=== PATIENT | female | born 1950 | race Caucasian/White ===

== ENCOUNTER 2019-12-24 05:41 | Inpatient (IN) | payer BC ==
[2019-12-23 16:52] VITALS: BMI 31.1
[2019-12-24] MEDS ORDERED: MIDAZOLAM HCL 2 MG/2 ML SINGLE DOSE VIAL ONE ×3 (07:24→07:26)
[2019-12-24] MEDS ORDERED: PROPOFOL 20 ML ONE (07:24)
[2019-12-24] MEDS ORDERED: ROCURONIUM BROMIDE 50 MG/5 ML SYRINGE ONE (07:24)
[2019-12-24] MEDS ORDERED: DEXAMETHASONE SOD PHOSPHATE/PF 10 MG/ML SDV ONE (07:27)
[2019-12-24] MEDS ORDERED: ceFAZolin SODIUM 1 GM VIAL IVPB ONE (08:25)
[2019-12-24] MEDS ORDERED: ceFAZolin SODIUM 1 GM VIAL ONE (08:26)
[2019-12-24] MEDS ORDERED: DEXAMETHASONE SOD PHOSPHATE 4 MG/1 ML VIAL ONE (08:39)
[2019-12-24] MEDS ORDERED: ONDANSETRON 4 MG/2 ML VIAL IVPUSH PRN (09:33)
[2019-12-24] MEDS ORDERED: ACETAMINOPHEN 1000 MG/100 ML VIAL (NON FORMULARY) IVPB ONE (09:34)
[2019-12-24] MEDS ORDERED: oxyCODONE HCL 5 MG TABLET PO PRN ×2 (09:34→10:17)
[2019-12-24] MEDS ORDERED: KETOROLAC TROMETHAMINE 30 MG/1 ML VIAL ONE (09:35)
[2019-12-24] MEDS ORDERED: GLYCOPYRROLATE 0.2 MG/1 ML VIAL ONE (09:35)
[2019-12-24] MEDS ORDERED: NEOSTIGMINE METHYLSULFATE 0.5 MG/ML - 10 ML MDV ONE (09:35)
[2019-12-24] MEDS ORDERED: ACETAMINOPHEN INJECTION 100 ML IVPB ONE (10:09)
[2019-12-24] MEDS: LACTATED RINGERS SOLUTION 1,000 ML IV SCH (10:15)
[2019-12-24] MEDS ORDERED: ACETAMINOPHEN 325 MG TABLET (FP) PO PRN (10:17)
[2019-12-24] MEDS ORDERED: IBUPROFEN 800 MG/8 ML IJ IVPB PRN (10:17)
[2019-12-24] MEDS: oxyCODONE HCL 10 MG SUSTAINED ACTING TABLET PO SCH ×2 (12:32→22:24)
[2019-12-24] MEDS: ACETAMINOPHEN 325 MG TABLET (FP) PO SCH ×3 (12:33→21:13)
[2019-12-24] MEDS: oxyCODONE HCL 5 MG TABLET PO PRN ×2 (14:31→17:45)
[2019-12-24] MEDS: CEFAZOLIN 2 GM/D5W 2 GM/50 ML ML IVPB SCH (17:45)
[2019-12-24] MEDS: amLODIPine BESYLATE 5 MG TABLET (FP) PO SCH (21:13)
[2019-12-25] MEDS: oxyCODONE HCL 5 MG TABLET PO PRN (00:55)
[2019-12-25] MEDS: CEFAZOLIN 2 GM/D5W 2 GM/50 ML ML IVPB SCH (01:01)
[2019-12-25] MEDS: ACETAMINOPHEN 325 MG TABLET (FP) PO SCH ×4 (03:56→21:31)
[2019-12-25 08:29] LABS: BASO % 0.1 % (0-2.0); HEMATOCRIT 41.7 % (32.4-45.2); HEMOGLOBIN 13.5 GM/dL (10.7-15.3); LYMPH % 10.1 % (8-40); MCH 26.1 pg (25.7-33.7); MCHC 32.4 g/dl (32.0-36.0); MEAN CELL VOLUME 80.5 fl (80-96); MEAN PLT VOLUME 10.6 fl (7.5-11.1); MONO % 6.9 % (3.8-10.2); NEUT % 82.9 % (42.8-82.8); PLATELET COUNT 206 K/MM3 (134-434); RBC 5.18 M/mm3 (3.60-5.2); RDW 13.3 % (11.6-15.6); WHITE BLOOD COUNT 12.5 K/mm3 (4.0-10.0)
[2019-12-25] MEDS: LOSARTAN 50MG/HCTZ 12.5MG 1 TAB PO SCH (09:38)
[2019-12-25] MEDS: oxyCODONE HCL 10 MG SUSTAINED ACTING TABLET PO SCH ×2 (09:39→22:28)
[2019-12-25] MEDS: LACTATED RINGERS SOLUTION 1,000 ML IV SCH (10:58)
[2019-12-25] MEDS: amLODIPine BESYLATE 5 MG TABLET (FP) PO SCH (21:31)
[2019-12-26] MEDS: ACETAMINOPHEN 325 MG TABLET (FP) PO SCH ×3 (03:49→15:06)
[2019-12-26 04:43] VITALS: TEMP 98.2
[2019-12-26 09:26] VITALS: BP 107/69; PULSE 79
[2019-12-26] MEDS: LOSARTAN 50MG/HCTZ 12.5MG 1 TAB PO SCH (10:33)
[2019-12-26] MEDS: oxyCODONE HCL 10 MG SUSTAINED ACTING TABLET PO SCH (10:34)
[2019-12-26] MEDS: LACTATED RINGERS SOLUTION 1,000 ML IV SCH (10:39)
[2019-12-26] MEDS: oxyCODONE HCL 5 MG TABLET PO PRN (15:05)
== END 2019-12-26 16:15 | disposition home or self-care (01) | DRG 743 ==
LOC: J2C 05:41 → EDSTATUS 08:00 → J3W 12:14
PROVIDERS: ADMIT Obstetrics & Gynecology; ATTEND Obstetrics & Gynecology
PROC: 0DNW0ZZ Release Peritoneum, Open Approach (ICD-10-PCS; 2019-12-24)
PROC: 0UT70ZZ Resection of Bilateral Fallopian Tubes, Open Approach (ICD-10-PCS; 2019-12-24)
PROC: 0UT90ZL Resection of Uterus, Supracervical, Open Approach (ICD-10-PCS; 2019-12-24)
PROC: 0UT20ZZ Resection of Bilateral Ovaries, Open Approach (ICD-10-PCS; principal; 2019-12-24 08:00)
DX: D25.1 Intramural leiomyoma of uterus (principal); N84.0 Polyp of corpus uteri; N93.8 Other specified abnormal uterine and vaginal bleeding; K66.0 Peritoneal adhesions (postprocedural) (postinfection)
CPT/HCPCS: 36415; 82962; 85025; 86850; 86900; 86901; 88307-TC; 94010; 94760; J0131